=== PATIENT | female | born 1990 | race Caucasian/White ===

== ENCOUNTER 2017-01-25 16:12 | Emergency (ER) | payer MEDICAID ==
[~2017-01-25] VITALS: Ht 149.9 cm; Wt 62.0 kg
[~2017-01-25 16:12] MED LIST: DIPH25CA6 PO; KENC1 TOP; OMEP20CA16 PO; PROC5TAB9 PO
[2017-01-25 16:13] VITALS: Ht 149.9 cm; Wt 62.0 kg
[2017-01-25 16:42] LABS: URINE BLOOD (Dip) POC 1+ (NEGATIVE)
[2017-01-25] MEDS ORDERED: CEPH500C PO (17:10)
[2017-01-25] MEDS ORDERED: TRAM-40 PO (17:10)
[2017-01-25] MEDS ORDERED: IBUP-1542 PO (17:10)
--- NOTE | 2017-01-25 17:15 | ERD ---
ER Documentation Chief Complaint Date/Time DATE: 01/25/17 TIME: 17:13 Chief Complaint BACK PAIN X 1 MONTH HPI 18-year-old female complains of right lower back pain for last month. She denies any inciting events or history of trauma. She denies any bowel bladder incontinence, dysuria, hematuria. Patient is approximately 2 weeks late for her menstrual period as well. She denies any sexual activity or possibility of . She denies any fever, chest pain, shortness of breath. She denies any abdominal pain. ROS All systems reviewed and are negative except as per history of present illness. Medications Home Meds Active Scripts Cephalexin* (Cephalexin*) 500 Mg Capsule, 500 MG PO Q6 for 7 Days, #28 CAP Prov:UNIQUE MALDONADO MD 01/25/17 Tramadol Hcl* (Ultram*) 50 Mg Tablet, 50 MG PO Q6H Y for PAIN, #20 TAB Prov:UNIQUE MALDONADO MD 01/25/17 Ibuprofen* (Motrin*) 600 Mg Tab, 600 MG PO Q6H Y for PAIN, #20 TAB Prov:UNIQUE MALDONADO MD 01/25/17 Reported Medications Prochlorperazine* (Prochlorperazine*) 5 Mg Tablet, 5 MG PO TID Y for NAUSEA, TAB 04/19/14 Diphenhydramine Hcl* (Diphenhydramine Hcl*) 25 Mg Capsule, 25 MG PO QID Y for ITCHING, CAP 04/19/14 Omeprazole* (Omeprazole*) 20 Mg Capsule.dr, 20 MG PO DAILY, CAP 04/19/14 Triamcinolone Acetonide (Triamcinolone Acetonide) 0.1% - 15 Gm Cream.gm., 1 APPLIC TOP DAILY, TUB 04/19/14 Allergies Allergies: Coded Allergies: No Known Allergy (Unverified , 04/19/14) PMhx/Soc History of Surgery: Yes () Anesthesia Reaction: No Hx Neurological Disorder: No Hx Respiratory Disorders: No Hx Cardiac Disorders: No Hx Psychiatric Problems: No Hx Miscellaneous Medical Probl: No Hx Alcohol Use: No Hx Substance Use: No Hx Tobacco Use: No Physical Exam Vitals Vital Signs Date Time Temp Pulse Resp B/P Pulse Ox O2 Delivery O2 Flow Rate FiO2 01/25/17 16:13 98.0 88 18 161/68 99 Physical Exam Const: [] Alert, [id number] per Head: Atraumatic Eyes: Normal Conjunctiva ENT: Normal External Ears, Nose and Mouth. Neck: Full range of motion..~ No meningismus. Resp: Clear to auscultation bilaterally Cardio: Regular rate and rhythm, no murmurs Abd: Soft, non tender, non distended. Normal bowel sounds Skin: No petechiae or rashes Back: No midline or flank tenderness mild tenderness primarily the right L2- L3 L L4 right paraspinous muscles without midline tenderness or deformities. No gross flank tenderness or CVA tenderness Ext: No cyanosis, or edema Neur: Awake and alert Psych: Normal Mood and Affect Results 24 hrs Laboratory Tests Test 01/25/17 16:44 Bedside Urine pH (LAB) 5.5 Bedside Urine Protein (LAB) Negative Bedside Urine Glucose (UA) Negative Bedside Urine Ketones (LAB) Negative Bedside Urine Blood 1+ Bedside Urine Nitrite (LAB) Negative Bedside Urine Leukocyte Esterase (L Trace Current Medications Medications (Trade) Dose Ordered Sig/Trang Route PRN Reason Start Time Stop Time Status Last Admin Dose Admin Ibuprofen (Motrin) 600 mg ONCE ONCE PO 01/25/17 17:30 01/25/17 17:31 01/25/17 17:11 Cephalexin (Keflex) 500 mg ONCE ONCE PO 01/25/17 17:30 01/25/17 17:31 01/25/17 17:11 Procedures/MDM Urine shows trace leukocytes and trace hemoglobin. HCG is negative. Patient presents with right-sided low back pain appears to be likely muscular skeletal blood will be treated for UTI given findings on urine as well. Signs or symptoms do not suggest pyonephritis, cauda equina syndrome, epidural abscess, fracture, dislocation. Patient was given instructions on back exercises as well. She will treated with Keflex, ibuprofen and Tylenol instructions to follow-up with primary care doctor. The patient was stable with no new complaints during the ER course. Clinically, there is no current evidence to suggest meningitis, sepsis, acute abdomen, pneumonia, acute coronary syndrome, pulmonary embolism, or any other emergent condition appearing to require further evaluation or hospitalization. The patient should certainly return for any new or worsening symptoms per the aftercare instructions. They should otherwise follow-up with her primary care doctor for reevaluation this week. Departure Diagnosis: Primary Impression: UTI (urinary tract infection) Urinary tract infection type: acute cystitis Hematuria presence: without hematuria Qualified Code: N30.00 - Acute cystitis without hematuria Additional Impression: Back pain Back pain location: low back pain Chronicity: acute Back pain laterality: right Sciatica presence: without sciatica Qualified Code: M54.5 - Acute right-sided low back pain without sciatica Condition: Stable Patient Instructions: Understanding Urinary Tract Infections (UTIs), Back Exercises, Lumbar, Back Pain (Acute Or Chronic) Additional Instructions: tiene poquito infeccion orina, josie posiblemente musculo. Cheque otro vez con calix doctor primario en el proximo batista or regresa para mas o nueva simptomas. UNIQUE MALDONADO MD January 25, 2017 17:15
[2017-01-25] MEDS ORDERED: IBUPROFEN 600 MG TAB PO ONE (17:30)
[2017-01-25] MEDS ORDERED: CEPHALEXIN 500 MG CAP PO ONE (17:30)
== END 2017-01-25 18:00 | disposition home or self-care (01) ==
LOC: FTE 16:12
DX: N30.00 Acute cystitis without hematuria (principal)
CPT/HCPCS: 81003; Z7502; Z7610; 99284

== ENCOUNTER 2017-02-08 19:22 | Emergency (ER) | payer MEDICAID ==
[~2017-02-08] VITALS: Ht 147.3 cm; Wt 62.5 kg
[~2017-02-08 19:22] MED LIST changes: +CEPH500C PO; +IBUP-1542 PO; +TRAM-40 PO
[2017-02-08 20:16] VITALS: Ht 147.3 cm; Wt 62.5 kg
--- NOTE | 2017-02-08 21:24 | ERD ---
ER Documentation Chief Complaint Date/Time DATE: 02/08/17 TIME: 21:17 Chief Complaint Lump left neck, cough, fever and diarrhea X4 days HPI 26-year-old female presents here in emergency department for complaints of a lump on the left neck, cough, runny nose nasal congestion fever diarrhea sore throat for 4 days. Patient has been having dry cough, does not cough up any phlegm or blood. Patient has been having runny nose nasal congestion clear nasal discharge. Patient has been having diarrhea, does not have any blurriness or blood. Patient does not have any vomiting. Patient did not take any medications to help with symptoms. ROS All systems reviewed and are negative except as per history of present illness. Medications Home Meds Active Scripts Cephalexin* (Cephalexin*) 500 Mg Capsule, 500 MG PO Q6 for 7 Days, #28 CAP Prov:UNIQUE MALDONADO MD 01/25/17 Tramadol Hcl* (Ultram*) 50 Mg Tablet, 50 MG PO Q6H Y for PAIN, #20 TAB Prov:UNIQUE MALDONADO MD 01/25/17 Ibuprofen* (Motrin*) 600 Mg Tab, 600 MG PO Q6H Y for PAIN, #20 TAB Prov:UNIQUE MALDONADO MD 01/25/17 Reported Medications Prochlorperazine* (Prochlorperazine*) 5 Mg Tablet, 5 MG PO TID Y for NAUSEA, TAB 04/19/14 Diphenhydramine Hcl* (Diphenhydramine Hcl*) 25 Mg Capsule, 25 MG PO QID Y for ITCHING, CAP 04/19/14 Omeprazole* (Omeprazole*) 20 Mg Capsule.dr, 20 MG PO DAILY, CAP 04/19/14 Triamcinolone Acetonide (Triamcinolone Acetonide) 0.1% - 15 Gm Cream.gm., 1 APPLIC TOP DAILY, TUB 04/19/14 Allergies Allergies: Coded Allergies: No Known Allergy (Unverified , 04/19/14) PMhx/Soc History of Surgery: Yes () Anesthesia Reaction: No Hx Neurological Disorder: No Hx Respiratory Disorders: No Hx Cardiac Disorders: No Hx Psychiatric Problems: No Hx Miscellaneous Medical Probl: No Hx Alcohol Use: No Hx Substance Use: No Hx Tobacco Use: No Smoking Status: Never smoker FmHx Family History: No coronary disease, No diabetes, No other Physical Exam Vitals Vital Signs Date Time Temp Pulse Resp B/P Pulse Ox O2 Delivery O2 Flow Rate FiO2 02/08/17 20:16 99.2 76 20 129/87 99 Physical Exam GENERAL: The patient is well developed and appropriate for usual state of health, in no apparent distress. HEENT: Atraumatic. Ears: Normal tympanic membrane, no erythema or bulging. No ear canal swelling. No ear discharge. Nose: Erythematous nasal turbinates with clear nasal discharge. Throat: oropharynx erythematous with postnasal drip. No tonsillar swelling or tonsillar exudates. No lymphadenopathy. CHEST: Clear to auscultation bilaterally. There are no rales, wheezes or rhonchi. HEART: Regular rate and rhythm. No murmurs, clicks, rubs or gallops. No S3 or S4. ABDOMEN: Soft, nontender and nondistended. Good bowel sounds. No rebound or guarding. No gross peritonitis. No gross organomegaly or masses. No Stewart sign or McBurney point tenderness. BACK: No midline or flank tenderness. EXTREMITIES: Equal pulses bilaterally. There is no peripheral clubbing, cyanosis or edema. No focal swelling or erythema. Full range of motion. Grossly neurovascularly intact. NEURO: Alert and oriented. Cranial nerves 2-12 intact. Motor strength in all 4 extremities with 5/5 strength. Sensation grossly intact. Normal speech and gait. SKIN: There is no apparent rash or petechia. The skin is warm and dry. HEMATOLOGIC AND LYMPHATIC: There is no evidence of excessive bruising or lymphedema. No gross cervical, axillary, or inguinal lymphadenopathy. Procedures/MDM Medical Decision Making: Patient symptoms are most likely consistent with viral syndrome. There is low suspicion for Pneumonia at this time since patients lungs sounds are clear, patient O2 saturation is normal and patient doesnt show any respiratory distress. Radiology exam is not indicated at this time. There is low suspicion for other cardiopulmonary emergencies at this time such as CHF, Pulmonary Embolism, Pneumothorax, or any other cardiopulmonary emergencies at this time. There is low suspicion for sepsis. Patient appears well and is hemodynamically stable. Fever is controlled with medicines. Disposition: Home. Condition: Stable Prescriptions: Zofran, ibuprofen, Bentyl, guaifenesin DM, Zyrtec Instructions: Patient is advised to take medications as prescribed. Patient is advised to rest. Patient advised to increase fluid intake, do humidifier at home and if possible, do salt water gargles. Patient is advised that if symptoms are worse, shortness of breath, uncontrolled fever, stridor, vomiting, worst signs and symptoms to return to emergency department immediately. Otherwise, patient is advised to follow up with primary doctor in 5-7 days. Departure Diagnosis: Primary Impression: Viral syndrome Condition: Stable Patient Instructions: Viral Syndrome (Child) Additional Instructions: Patient is advised to take medications as prescribed. Patient is advised to rest. Patient advised to increase fluid intake, do humidifier at home and if possible, do salt water gargles. Patient is advised that if symptoms are worse, shortness of breath, uncontrolled fever, stridor, vomiting, worst signs and symptoms to return to emergency department immediately. Otherwise, patient is advised to follow up with primary doctor in 5-7 days. NADINE LOVETT NP Feb 08, 2017 21:24
[2017-02-08] MEDS ORDERED: IBUP-1542 PO (21:25)
[2017-02-08] MEDS ORDERED: CETI10CA PO (21:25)
[2017-02-08] MEDS ORDERED: GUAI120S26 PO (21:25)
[2017-02-08] MEDS ORDERED: DICY10CA60 PO (21:25)
[2017-02-08 22:25] VITALS: BP 118/78; PULSE 72; RESP 18; TEMP 98.3
== END 2017-02-08 22:30 | disposition home or self-care (01) ==
LOC: FTE 19:22
DX: B34.9 Viral infection, unspecified (principal)
CPT/HCPCS: 99283